=== PATIENT | female | born 1985 | race Two or more races ===

== ENCOUNTER 2017-01-05 23:43 | Emergency (ER) | payer OTHER, MEDICAID ==
[2017-01-06] MEDS ORDERED: ACETAMINOPHEN 500 MG TABLET ONE (01:26)
[2017-01-06 01:28] LABS: ABSOLUTE NEUTROPHIL COUNT 4.9 K/mm3 (1.8-7.7); BASO % 0.4 % (0.2-1.0); EOS # 0.2 (0.0-0.5); EOS % 2.4 % (0.9-2.9); HEMATOCRIT 33.9 % (37.0-47.0); HEMOGLOBIN 10.6 gm/l (12.0-16.0); IMM NEUT% 0.4 % (0-1); LYMPH # 1.5 (1.0-4.8); LYMPH % 21.1 % (15-45); MEAN CELL VOLUME 81.1 fl (81.0-99.0); MEAN CORPUSCULAR HEMOGLOBIN 25.4 pg (27.0-31.0); MEAN CORPUSCULAR HGB CONC 31.3 g/dl (33.0-37.0); MEAN PLATELET VOLUME 12.5 fl (7.4-10.4); MONO # 0.4 (0.0-0.8); MONO % 6.2 % (4-12); NEUT % 69.5 % (43-75); PLATELET COUNT 202 K/mm3 (130-400); RED CELL DISTRIBUTION WIDTH 15.9 % (11.5-14.5)
[2017-01-06 01:40] LABS: SPECIFIC GRAVITY 1.015 (1.001-1.030); URINE BILIRUBIN NEGATIVE (NEGATIVE); URINE BLOOD TRACE (NEGATIVE); URINE GLUCOSE (UA) NEGATIVE (NEGATIVE); URINE LEUKOCYTE ESTERASE 2+ (NEGATIVE); URINE NITRITE NEGATIVE (NEGATIVE); URINE PROTEIN NEGATIVE (NEGATIVE); URINE UROBILINOGEN NORMAL (0-1 mg/dl)
[2017-01-06 01:42] LABS: ALB/GLOB RATIO 1.2 (>1.0); ALBUMIN 3.8 gm/dL (3.5-5.7); CALCIUM 8.7 mg/dL (8.6-10.3)
[2017-01-06 01:42] LABS: URINE APPEARANCE SL CLOUDY; URINE COLOR YELLOW
[2017-01-06 01:45] LABS: URINE BACTERIA 2+
--- NOTE | 2017-01-06 07:39 | CT ---
Name: MAURILIO HASSAN Exam: CT head without contrast Comparison: None Clinical history: Trauma Technique: Helical CT was performed through the head. Angled axial reconstructions were obtained. Sagittal and coronal reconstructions were obtained as well. No contrast was given. An automated dose reduction technique was used to minimize patient radiation dose. Findings: There is no shift of midline structures. Ventricles are of normal size and configuration. There is no mass, mass effect or hemorrhage. Cisterns are uneffaced. Posterior fossa is unremarkable. There is no fracture. Visualized paranasal sinuses and mastoid air cells are within normal limits. Impression: Negative unenhanced CT of the head Note: Findings were transmitted to the emergency Department from [place] 0112 hours
--- NOTE | 2017-01-06 07:42 | CT ---
Name: MAURILIO HASSAN Exam: CT of the cervical spine without contrast Comparison: None. Clinical history: Pain. Trauma Procedure: Helical CT using multidetector technique was applied to the cervical spine. No contrast was given. Sagittal, axial and coronal images are submitted. And automated dose reduction technique was used to minimize patient radiation dose. Findings: Bone density is normal. Vertebral body alignment is within normal limits. There is no fracture or suspicious disc space narrowing. The odontoid is intact. An acute disc is not appreciated on this exam. Perivertebral soft tissues are within normal limits. Impression: Negative CT of the cervical spine Note: Findings were transmitted to the emergency department from [place] at 0112 hours
--- NOTE | 2017-01-06 11:06 | RAD ---
Name: MAURILIO HASSAN Exam: Two-view chest Comparison: 04/28/2016 Clinical history: Trauma Findings: 2 views of the chest are submitted. The heart mediastinum and hilar structures are within normal limits. There is no failure, infiltrate, pleural effusion or pneumothorax. Regional skeleton is within normal limits. Impression: No acute cardiopulmonary process
== END 2017-01-06 01:57 | disposition home or self-care (01) ==
LOC: ED 23:43
DX: R51 Headache (principal); S16.1XXA Strain of muscle, fascia and tendon at neck level, initial encounter; V43.52XA Car driver injured in collision with other type car in traffic accident, initial encounter; Y92.410 Unspecified street and highway as the place of occurrence of the external cause; Y99.9 Unspecified external cause status
CPT/HCPCS: 84703; 85025; 80053; 80307; 81001; 71020; 72125; 70450; 99284; 99283; A9270